=== PATIENT | male | born 1940 | race Caucasian/White ===

== ENCOUNTER 2018-04-04 20:34 | Outpatient (REF) | payer MEDICARE, BC, SELFPAY ==
[2018-04-04 21:35] LABS: Anion Gap 8.8 mmol/L (3-11); BUN 26 mg/dL (7-18); CO2 30.2 mmol/L (21.0-32.0); Calcium 10.2 mg/dL (8.5-10.1); Chloride 100 mmol/L (98-107); Cholesterol 210 mg/dL (50-200); Glucose 84 mg/dL (70-100); HDL Cholesterol 70 mg/dL (40-60); LDL CHOLESTEROL 126 mg/dL (<100); Potassium 4.2 mmol/L (3.5-5.1); Sodium 139 mmol/L (136-145); Triglyceride 68 mg/dL (30-150)
== END 2018-04-04 20:54 ==
LOC: NCHCN 20:34
PROVIDERS: PCP Internal Medicine; Visit Provider Internal Medicine
DX: I10 Essential (primary) hypertension (principal)
CPT/HCPCS: 80048; 80061; 83721

== ENCOUNTER 2018-08-03 22:03 | Outpatient (REF) | payer MEDICARE, BC, SELFPAY ==
[2018-08-03 22:39] LABS: Abs Immature Grans 0.13 k/cumm (0.0-0.09); HCT 28.7 % (40.0-50.0); HGB 9.2 g/dL (13.5-17.5); Mean Corp. HGB Concentration 32.1 g/dL (32.0-36.0); Mean Corpuscular Hemoglobin 29.2 pg (27.0-33.0); Mean Corpuscular Volume 91.1 fL (80-95); Mean Platelet Volume 13.2 fL (8.0-11.0); Platelet Count 213 x1000/uL (130-400); RBC 3.15 m/cumm (4.50-6.00); RBC Distribution Width 15.5 % (11.8-14.1); Reticulocyte 3.7 % (0.5-2.4)
[2018-08-03 23:05] LABS: White Blood Cell Count 29.12 k/cumm (4.4-10.8)
[2018-08-03 23:13] LABS: Absolute Monocyte Count 0.58 k/cumm (0.11-0.7); Absolute Neutrophil Count 5.53 k/cumm (1.2-6.7); Anisocytosis 1+; Diff Comment Manual Differential; Nucleated RBC 3 /100WBC
[2018-08-03 23:14] LABS: Microcytosis 1+
== END 2018-08-03 22:23 ==
LOC: NCHCN 22:03
PROVIDERS: PCP Internal Medicine; Visit Provider Nurse Practitioner Family
DX: K92.2 Gastrointestinal hemorrhage, unspecified (principal)
CPT/HCPCS: 85025; 85045

== ENCOUNTER 2018-11-17 15:50 | Outpatient (REF) | payer MEDICARE, BC, SELFPAY ==
[2018-11-17 21:39] LABS: Source R KNEE
[2018-11-17 21:40] LABS: Clarity CLOUDY
[2018-11-17 21:41] LABS: Mononuclear Cells 83 % (0-0); Polynuclear Cells 17 % (0-0)
== END 2018-11-17 16:10 ==
LOC: NCHCN 15:50
PROVIDERS: PCP Internal Medicine; Visit Provider Internal Medicine
DX: M25.561 Pain in right knee (principal)
CPT/HCPCS: 87070; 87205; 89051; 89060